=== PATIENT | male | born 1955 | race Two or more races ===

== ENCOUNTER 2017-12-07 08:08 | Inpatient (IN) | payer OTHER ==
[~2017-12-07] VITALS: Ht 172.7 cm; Wt 79.5 kg
[2017-12-07] MEDS ORDERED: SODIUM CHLORIDE 0.9% 1,000 ML IV ONE (08:27)
[2017-12-07 09:10] LABS: Basophils # (auto) 0 uL; Basophils % (auto) 0.4 % (0.0-2.0); Eosinophils # (auto) 0.1 uL; Eosinophils % (auto) 1.3 % (0.0-7.0); Hematocrit 40.4 % (41.0-53.0); Hemoglobin 13.6 g/dL (13.5-17.5); Lymphocytes # (auto) 1.1 uL; Lymphocytes % (auto) 20.5 % (10.0-50.0); Mean Corpuscular Hemoglobin 31.4 pg (28.0-32.0); Mean Corpuscular Hgb Conc. 33.6 g/dL (32.0-36.0); Mean Corpuscular Volume 93.4 fL (80.0-100.0); Monocytes # (auto) 0.5 uL; Monocytes % (auto) 9.4 % (0.0-12.0); Neutrophils # (auto) 3.7 uL; Neutrophils % (auto) 68.4 % (37.0-80.0); Nucleated Red Blood Cells % 0.1 %; Platelet Count (auto) 175 10^3/uL (140-450); Red Blood Cells 4.32 10^6/uL (4.5-5.90); Red Cell Distribution Width 13.4 % (11.8-14.3); White Blood Cell 5.4 10^3/uL (4.4-10.8)
[2017-12-07 09:48] LABS: Urine Bacteria NONE SEEN /hpf (None Seen); Urine Blood Negative /uL (Negative); Urine Hyaline Cast FEW /lpf (0 - 2); Urine Mucus FEW (None Seen); Urine Specific Gravity 1.012 (1.001-1.035); Urine WBC 1 /hpf (0 - 3)
[2017-12-07 09:51] LABS: Alanine Aminotransferase 24 U/L (16-61); Albumin 3.8 g/dL (3.4-5.0); Alkaline Phosphatase 55 U/L (45-117); Anion Gap 9 (5-15); Aspartate Aminotransferase 15 U/L (15-37); BUN/Creatinine Ratio 19.8; Bilirubin, Total 0.5 mg/dL (0.2-1.0); Blood Urea Nitrogen 17 mg/dL (7-18); Calcium 8.2 mg/dL (8.5-10.1); Carbon Dioxide 27 mmol/L (21-32); Chloride 101 mmol/L (98-107); GFR African American 116 mL/min; GFR Non-African American 95 mL/min; Glucose 173 mg/dL (74-106); Magnesium 2.2 mg/dL (1.6-2.6); Potassium 3.8 mmol/L (3.5-5.1); Sodium 137 mmol/L (136-145); Total Protein 7.2 g/dL (6.4-8.2)
[2017-12-07] MEDS ORDERED: ASPirin 81 mg TAB PO ONE ×2 (10:45→11:00)
[2017-12-07] MEDS ORDERED: SODIUM CHLORIDE 0.9% 1,000 ML IV SCH (10:45)
[2017-12-07] MEDS ORDERED: NITROGLYCERIN 0.4 MG SL TAB SL PRN (10:45)
[2017-12-07] MEDS ORDERED: ATORVASTATIN 20 MG TAB PO SCH (10:45)
[2017-12-07] MEDS ORDERED: DEXTROSE (50%) 50ML SYRG IV PRN (10:45)
[2017-12-07] MEDS ORDERED: ACETAMINOPHEN 500 MG TAB PO PRN (10:45)
[2017-12-07] MEDS ORDERED: MORPHINE SULFATE 4 MG/ML SYR/VIAL IV PRN ×2 (10:45)
[2017-12-07] MEDS ORDERED: LORazepam 0.5 MG TAB PO PRN (10:45)
[2017-12-07] MEDS ORDERED: LACTULOSE 20Gm/30ML SOLN PO PRN (10:45)
[2017-12-07] MEDS ORDERED: TEMAZEPAM 15 MG CAP PO PRN (10:45)
[2017-12-07] MEDS ORDERED: PROMETHAZINE HCL 25 MG/ML 1ML IV PRN (10:45)
[2017-12-07] MEDS ORDERED: HYDROcodone-ACET 5/325MG TAB PO PRN (10:45)
[2017-12-07] MEDS ORDERED: ENOXAPARIN SOD 40 MG/0.4 ML SYRINGE SC ONE (11:00)
[2017-12-07] MEDS ORDERED: PANTOPRAZOLE 40 MG TAB PO ONE (11:00)
[2017-12-07 11:42] LABS: Cholesterol 161 mg/dL (< 200); Creatine Kinase IFCC 109 U/L (39-308); HDL Cholesterol 47 mg/dL (40-59); LDL Cholesterol 111 mg/dL (< 100); Triglycerides 81 mg/dL (< 150)
[2017-12-07] MEDS: ACCU-CHEK COMFORT CURVE STRIP VI SCH ×3 (11:49→21:24)
[2017-12-07] MEDS: InsuLIN REG 1unit/0.01ml Soln (100units/ml) SC SCH ×3 (11:59→21:24)
[2017-12-07 12:35] LABS: Folate (Folic Acid) 12.38 ng/mL (5.38-24)
[2017-12-07 13:07] VITALS: BP 120/78
[2017-12-07] MEDS ORDERED: LORazepam 2MG/ML-1ML VIAL IV PRN (13:45)
[2017-12-07] MEDS: SODIUM CHLORIDE 0.9% 1,000 ML IV SCH (16:00)
[2017-12-07] MEDS ORDERED: HYDR12.527 PO (16:27)
[2017-12-07] MEDS ORDERED: METF-370 PO (16:27)
[2017-12-07] MEDS ORDERED: BENA20TA14 PO (16:27)
[2017-12-07 18:52] LABS: Alcohol, Urine < 3.0 mg/dL (0-5); Amphetamine Screen, Urine NEGATIVE (NEGATIVE); Barbiturate Scree,Urine NEGATIVE (NEGATIVE); Benzodiazephine Screen, Urine NEGATIVE (NEGATIVE); Cannabinoid Screen, Urine NEGATIVE (NEGATIVE); Cocaine Screen, Urine NEGATIVE (NEGATIVE); Opiate Scree,Urine NEGATIVE (NEGATIVE); Phencyclidine Screen, Urine NEGATIVE (NEGATIVE)
[2017-12-07 19:35] LABS: Urine Bacteria NONE SEEN /hpf (None Seen); Urine Blood Negative /uL (Negative); Urine Specific Gravity 1.009 (1.001-1.035); Urine WBC <1 /hpf (0 - 3)
[2017-12-07] MEDS: ATORVASTATIN 20 MG TAB PO SCH ×3 (20:51→21:24)
[2017-12-07 21:42] VITALS: BP 127/85
[2017-12-08] MEDS: SODIUM CHLORIDE 0.9% 1,000 ML IV SCH (04:30)
[2017-12-08 05:30] VITALS: BP 142/96
[2017-12-08 06:11] LABS: Cholesterol 167 mg/dL (< 200); HDL Cholesterol 48 mg/dL (40-59); LDL Cholesterol 115 mg/dL (< 100); Triglycerides 106 mg/dL (< 150)
[2017-12-08] MEDS: ACCU-CHEK COMFORT CURVE STRIP VI SCH ×2 (07:00→12:00)
[2017-12-08] MEDS: InsuLIN REG 1unit/0.01ml Soln (100units/ml) SC SCH ×2 (07:00→12:00)
[2017-12-08 08:00] VITALS: BP 166/95
[2017-12-08] MEDS: LABETALOL HCL 5 MG/ML ML 20ML VIAL IV PRN ×2 (08:57→12:00)
[2017-12-08 09:00] VITALS: BP 166/95
[2017-12-08] MEDS ORDERED: ASPirin 81 mg TAB PO SCH (10:00)
[2017-12-08] MEDS ORDERED: ENOXAPARIN SOD 40 MG/0.4 ML SYRINGE SC SCH (10:00)
[2017-12-08] MEDS ORDERED: PANTOPRAZOLE 40 MG TAB PO SCH (10:00)
[2017-12-08 13:00] VITALS: BP 155/96
[2017-12-08 17:00] VITALS: BP 162/94
== END 2017-12-08 18:30 | disposition home or self-care (01) | DRG 312 ==
LOC: ER 08:08 → TELE 08:09 → TELE-WESTW 12:50
PROVIDERS: ADMIT Internal Medicine; ATTEND Family Medicine
DX: R55 Syncope and collapse (principal); E11.8 Type 2 diabetes mellitus with unspecified complications; E11.9 Type 2 diabetes mellitus without complications; I10 Essential (primary) hypertension; E78.00 Pure hypercholesterolemia, unspecified; Z79.82 Long term (current) use of aspirin; Z83.3 Family history of diabetes mellitus
CPT/HCPCS: 36415; 70450; 70551; 71046; 80053; 80061; 80307; 81001; 82550; 82607; 82746; 82962; 83036; 83735; 84443; 84484; 85025; 85379; 85652; 93005; 93886; 94761; 95819; 96372; J1815

== ENCOUNTER 2021-11-18 12:14 | Emergency (ER) | payer OTHER, MEDICARE ==
[~2021-11-18] VITALS: Ht 175.3 cm; Wt 77.1 kg
[~2021-11-18 12:14] MED LIST: BENA20TA14 PO; HYDR12.55 PO; METF-370 PO
[2021-11-18 12:23] VITALS: BP 160/100
== END 2021-11-18 14:23 | disposition home or self-care (01) ==
LOC: ER 12:14 → EDBD 12:14 → ER 14:23
DX: S16.1XXA Strain of muscle, fascia and tendon at neck level, initial encounter (principal); M50.30 Other cervical disc degeneration, unspecified cervical region; E11.9 Type 2 diabetes mellitus without complications; I10 Essential (primary) hypertension; V43.52XA Car driver injured in collision with other type car in traffic accident, initial encounter; Y93.89 Activity, other specified; Y92.410 Unspecified street and highway as the place of occurrence of the external cause; Y99.8 Other external cause status
CPT/HCPCS: 72040; 93005